=== PATIENT | female | born 1995 | race Caucasian/White ===

== ENCOUNTER 2024-06-13 13:59 | Outpatient (CLI) | payer MEDICAID, SELFPAY ==
--- NOTE | ~2024-06-13 | US_ITS ---
EXAMINATION: US OB <= 14 weeks fetus DATE: 06/13/2024 14:38 INDICATION: First trimester with inconclusive viability TECHNIQUE: Real-time pelvic ultrasound utilizing transabdominal probe was performed. The reuben stevens radiologist was not present for the study. COMPARISON: None. FINDINGS: The uterus measures 15.6 x 5.9 x 9.2 cm. There is an intrauterine gestational sac with single fetus which is in vertex position. The crown rump length measures 7.6 cm, which correlates with an estimate d gestational age of 13 weeks and 5 days. heart motion is identified measuring 150 beats per mi nute (bpm) by M-mode Doppler. The ovaries are not identified. There is no free fluid in the pelvis. IMPRESSION: 1. Single living fetus with heart of 150 bpm. 2. Gestational age by ultrasound of 13 weeks 5 day(s) +/- 1 week and 2 day(s) with ultrasound estima remberto date of delivery (ESTEFANIA) of 12/14/2024. Reviewed, dictated and finalized at location A. IMPRESSION: 1. Single living fetus with heart of 150 bpm. 2. Gestational age by ultrasound of 13 weeks 5 day(s) +/- 1 week and 2 day(s) with ultrasound estimated date of delivery (ESTEFANIA) of 12/14/2024.
[2024-06-13 15:11] LABS: Basophils Percent Auto 0.3 % (0.2-1.2); Eosinophils Absolute Auto 0.2 K/mm3 (0-0.3); Eosinophils Percent Auto 1.8 % (0-4.4); Hematocrit 33.7 % (37.0-47.0); Hemoglobin 12.1 g/dL (12.0-15.0); Immature Granulocyte Absolute 0.07 K/mm3 (0.00-0.031); Immature Granulocyte Percent A 0.5 % (0-0.5); Lymphocytes Absolute Auto 2.43 K/mm3 (0.9-3.2); Lymphocytes Percent Auto 18.3 % (18.3-44.2); Mean Corpuscular HGB Conc 35.9 g/dl (32-36); Mean Corpuscular Hemoglobin 32.3 pg (26-34); Mean Corpuscular Volume 89.9 fl (80-100); Mean Platelet Volume 10.4 fl (7.4-10.4); Monocytes Absolute Auto 0.7 K/mm3 (0.1-0.6); Monocytes Percent Auto 5.2 % (2.6-8.5); Neutrophils Absolute Auto 9.8 K/mm3 (1.3-6.7); Neutrophils Percent Auto 73.9 % (45.5-73.1); Platelet Count Result 270 k/mm3 (150-375); Red Blood Count 3.75 M/mm3 (4.2-5.4); Red Cell Distribution Width 12.1 % (11.5-14.5); White Blood Count 13.3 K/mm3 (4.5-10.0)
[2024-06-13 16:04] LABS: HIV 1/2 Ab P24 Ag Result Negative (Negative)
[2024-06-13 18:13] LABS: Vitamin D 25 Hydroxy 45.8 ng/mL
[2024-06-13 18:32] LABS: Hepatitis B Surface Antigen Negative (Negative); Rubella IgG Antibody 14.1 IU/ML
[2024-06-13 18:47] LABS: Hepatitis C Virus Antibody Negative (Negative)
[2024-06-14 07:33] LABS: Rapid Plasma Reagin Non-Reactive (NonReactive)
== END 2024-06-13 14:00 | disposition home or self-care (01) ==
PROVIDERS: Visit Provider Advanced Practice Midwife
DX: O36.80X0 Pregnancy with inconclusive fetal viability, not applicable or unspecified (principal); Z3A.13 13 weeks gestation of pregnancy
CPT/HCPCS: 36415; 76801; 82306; 82728; 83036; 85025; 86592; 86703; 86762; 86803; 86900; 86901; 87340; G0432

== ENCOUNTER 2024-07-30 09:44 | Outpatient (CLI) | payer OTHER, SELFPAY ==
--- NOTE | ~2024-07-30 | US_ITS ---
COMPLETE AND LIMITED MATERNAL ULTRASOUND (Doppler ultrasound interrogation techniques used as n eeded for this exam.) Ordering provider: Brenda Higuera CNM History: . ANATOMY SCREEN . Comparison: None. Findings: : Single intrauterine fetus with heart rate measured at 151 bpm which is within normal limits. Presentation: Vertex Lie : Longitudinal --SCREENING OF ANATOMY: Heart (4 chambers): Seen and unremarkable. Brain survey: Unremarkable. The cerebellum measures 1.7 cm. Cisterna magna measures 0.3 cm. Lateral ventricle measures 0.5 cm. Abdomen: Unremarkable. Stomach is normal. Cord insertion: Unremarkable. 3 vessel cord: Present and unremarkable. Bladder: Unremarkable. Kidneys: Unremarkable. Spine: Unremarkable. -- BIOMETRICS: BPD: 47.1 mm = 20 weeks and 2 days HC: 175.7 mm = 20 weeks and 1 day FL: 32.1 mm = 20 weeks. AC: 142.5 mm = 19 weeks and 4 days s HC/AC: 1.24 FL/BPD: 67.82 FL/AC: 22.56 Mean US age is 20 weeks and 0 days for an ESTEFANIA on December 17, 2024. Extrapolated weight is 316.48 g EFW/GP 36.5% LOS: 19.1 cm. 5th percentile is 9.3 cm. 95th percentile areas 21.2 cm. The largest pocket measures 7. 3 cm. Placenta: Posterior with No evidence for significant placental anomalies including placenta previa. P lacenta is about 7.5 cm from the cervix. The cervical length is 3.9 cm which is within normal limits. MATERNAL: unremarkable limited maternal ultrasound. IMPRESSION: UNREMARKABLE COMPLETE AND LIMITED MATERNAL US. Reviewed, dictated and finalized at location A.
== END 2024-07-30 09:45 | disposition home or self-care (01) ==
PROVIDERS: Visit Provider Advanced Practice Midwife
DX: Z36.9 Encounter for antenatal screening, unspecified (principal)
CPT/HCPCS: 76805

== ENCOUNTER 2024-10-22 13:03 | Observation (INO) | payer OTHER, SELFPAY ==
[2024-10-22 13:03] VITALS: BMI 28.5
--- NOTE | 2024-10-22 13:03 | OBADM ---
This patient, Jojo Crowe, admitted to the OB room OB Post 116 for observation. Patient/family oriented to hospital policies and general routines including ID bracelet, bed and alarms, visiting hours, pain management, procedures, bathroom and other care routines, personal items, smoking policy, room service/diet, and visiting hours. Patient/Family are encouraged to report perceived risks to care and to ask questions if they do not understand what they are told or what they should do.
[2024-10-22 13:47] VITALS: TEMP 36.5
[2024-10-22 13:53] VITALS: TEMP 36.5
[2024-10-22 14:07] VITALS: BP 101/66; PULSE 96
[2024-10-22] MEDS: DEXTROSE 5%/LACTATED RINGERS 1,000 ML 999 ML IV CONT (14:07)
[2024-10-22] MEDS: ONDANSETRON INJ 4 MG/2 ML VIAL IV PUSH (14:07)
[2024-10-22 14:11] LABS: Add Urine Microscopic? YES; Appearance Urine Cloudy (Clear); Bacteria Urine 3+ /hpf; Bilirubin Urine Negative (Negative); Blood Urine Negative (Negative); Color Urine Dark Yellow (Yellow); Glucose Urine UA Negative (Negative); Ketones Urine 4+ mg/dL (Negative); Leukocyte Esterase Ur Negative LEU/UL (Negative); Need Manual Microscopic Reviewed; Nitrate Urine Negative (Negative); Non Pathogenic Casts 0-2; Protein Urine 1+ mg/dL (Negative); RBC Urine 0-2 /hpf (0-2); Squamous Epithelial Cell Urine Moderate /hpf (Few); pH Urine 5.5 (5.0-9.0)
[2024-10-22 16:20] VITALS: TEMP 36.6
[2024-10-22] MEDS: DEXTROSE 5%/LACTATED RINGERS 1,000 ML 500 ML IV CONT (16:46)
[2024-10-22] MEDS: PROMETHAZINE HCL 25 MG/ML AMPUL 12.5 MG IV PUSH (16:48)
--- NOTE | 2024-11-18 11:27 | P.PNOB_ITS ---
OB - Triage/Final Diagnosis Visit Information Comments/Additional reasons for admission: I have assessed the risk for this patient, Jojo Crowe, and determined that she would benefit from observation care. Evaluation Laboratory results: Laboratory Tests 10/22/24 13:33 Urine Color Dark yellow Urine Appearance Cloudy H Urine pH 5.5 Ur Specific [place] 1.030 Urine Protein 1+ H Urine Glucose (UA) Negative Urine Ketones 4+ H Ur Blood (Man) Negative Urine Nitrate Negative Urine Bilirubin Negative Urine Urobilinogen 1.0 Ur Leukocyte Esterase Negative Add Ur Microanalysis Reviewed Urine RBC 0-2 Urine WBC 11-20 H Ur Squamous Epith Cells Moderate Urine Bacteria 3+ H Urine Casts 0-2 Final Diagnosis (1) Nausea and vomiting during : Code(s): O21.9 - Vomiting of , unspecified Status: Acute
== END 2024-10-22 18:58 | disposition home or self-care (01) ==
PROVIDERS: Admitting Provider Obstetrics & Gynecology; Visit Provider Obstetrics & Gynecology
DX: O21.9 Vomiting of pregnancy, unspecified (principal); Z3A.00 Weeks of gestation of pregnancy not specified
CPT/HCPCS: 81001; 87086; 96374; 96375; G0378; G0379; J2405; J2550; J7121

== ENCOUNTER 2024-12-13 07:16 | Inpatient (IN) | payer OTHER, SELFPAY ==
[2024-12-13] VITALS (217 sets, daily range): BP systolic 91–135; BP diastolic 35–92; PULSE 55–118; TEMP 36.5–37.7; O2SAT 85–100; BMI 29.8
--- NOTE | 2024-12-13 07:46 | WPDOBADMIT ---
Obstetrics - Admit Note Admission Note: record reviewed. No pertinent additions to the history and/or any subsequent changes in the physical findings that are not consistent with the expected course of the were found. Additions to the history and/or subsequent changes in the physical findings follow. Here for MIL. Cervix 1-2/50/-2 anterior-AROM with clear fluid. Will start pitocin.
[2024-12-13 08:03] LABS: Basophils Percent Auto 0.3 % (0.2-1.2); Eosinophils Absolute Auto 0.1 K/mm3 (0-0.3); Eosinophils Percent Auto 0.9 % (0-4.4); Hematocrit 37.4 % (37.0-47.0); Hemoglobin 13.2 g/dL (12.0-15.0); Immature Granulocyte Absolute 0.11 K/mm3 (0.00-0.031); Lymphocytes Absolute Auto 2.41 K/mm3 (0.9-3.2); Lymphocytes Percent Auto 22.1 % (18.3-44.2); Mean Corpuscular HGB Conc 35.3 g/dl (32-36); Mean Corpuscular Hemoglobin 32.1 pg (26-34); Mean Platelet Volume 11.8 fl (7.4-10.4); Monocytes Absolute Auto 0.8 K/mm3 (0.1-0.6); Monocytes Percent Auto 7.3 % (2.6-8.5); Neutrophils Absolute Auto 7.5 K/mm3 (1.3-6.7); Neutrophils Percent Auto 68.4 % (45.5-73.1); Platelet Count Result 190 k/mm3 (150-375); Red Blood Count 4.11 M/mm3 (4.2-5.4); Red Cell Distribution Width 12.8 % (11.5-14.5); White Blood Count 10.9 K/mm3 (4.5-10.0)
[2024-12-13 08:36] LABS: Rapid Plasma Reagin Non-Reactive (NonReactive)
[2024-12-13] MEDS: OXYTOCIN 30 UNITS/NS 500 ML 30 UNITS/500 ML BAG 6 UNITS IV CONT (08:37)
[2024-12-13] MEDS: LACTATED RINGERS 1,000 ML 125 ML IV CONT ×3 (08:38→18:44)
[2024-12-13 08:56] LABS: HIV 1/2 Ab P24 Ag Result Negative (Negative)
[2024-12-14] VITALS (187 sets, daily range): BP systolic 86–143; BP diastolic 39–99; PULSE 45–184; RESP 16; TEMP 36.6–39.3; O2SAT 90–100
[2024-12-14] MEDS: fentaNYL CITRATE INJ (*CRX) 100 MCG/2 ML VIAL 50 MCG IV PUSH (00:20)
[2024-12-14] MEDS: ACETAMINOPHEN 500 MG TABLET 1000 MG PO (01:00)
[2024-12-14] MEDS: AMPICILLIN 2 GM/NS 100 ML 2 GM/100 ML BAG IVPB (02:22)
[2024-12-14] MEDS: LACTATED RINGERS 1,000 ML 125 ML IV CONT ×2 (02:24→12:28)
[2024-12-14] MEDS: diphenhydrAMINE HCl INJ 50 MG/ML VIAL 25 MG IV PUSH ×2 (02:56→12:27)
[2024-12-14] MEDS: GENTAMICIN SULFATE INJ 335 MG in DEXTROSE 5% 100 ML 108.38 MG IVPB (03:41)
[2024-12-14] MEDS: ACETAMINOPHEN 500 MG TABLET 1000 MG (07:49)
[2024-12-14] MEDS: AMPICILLIN 1 GM/NS 50 ML 1 GM/50 ML BAG IVPB ×3 (07:49→20:00)
--- NOTE | 2024-12-14 13:33 | PM.OBPRVD ---
OB - Vaginal Delivery Note Procedure Delivery date: 12/14/24 Intrapartal Events: Chorioamnionitis Induction method: AROM and Per Pitocin Protocol Delivery monitor: External FHT and External Uterine Route of delivery: Episiotomy description: None Laceration Description: Perineal - 1st Degree Delivery repair: vicryl (3-0) Specimen: Yes (placenta) Quantitative Blood Loss (ml): 150 Anesthesia type: Epidural Disposition: Floor Complications: No immediate complications Kerrick Baby Date of : 12/14/24 gender: Female Weight (pounds): 7 Weight (ounces): 2 presentation: vertex position: Right Occiput Anterior Placenta delivery description: Spontaneous Cord Vessel Description: 3 Vessels and Delayed Cord Clamping score one minute: 8 score five minutes: 9
--- NOTE | 2024-12-14 13:35 | P.DS_ITS ---
DS: Admitting Diagnosis Discharge Date 12/17/24 Admitting Diagnosis IUP 39 wks MIL DS: Discharge Diagnosis Discharge Diagnosis (1) (normal spontaneous vaginal delivery): Code(s): O80 - Encounter for full-term uncomplicated delivery Status: Acute OB - DS: Summary Hospital Course Hospital Course: Right lower leg tingling with normal strength and walking. Anesthesia to evaluate. OB Procedures : Ultrasound OB Procedures Intrapartum: Spontaneous Vag Delivery OB Procedures: : None Peripartum Data Infant Delivery Method: Natural Vaginal Laceration Description: Perineal - 1st Degree Episiotomy description: None complications: none Status at Discharge Functional status at discharge: independent ambulation Overall status at discharge: patient is progressing back to baseline Time Spent with Patient Time attestation: Total time spent providing and/or coordinating discharge services: Discharge Plan Discharge Attending physician on discharge: Melody Nunez Discharging Clinician: Melody Nunez Anticipated Discharge Date/Time: 12/16/24 13:36 Patient Disposition: Home, Self-Care Activity: may shower and pelvic rest Diet: regular Discharge Instructions: Education: Mom and Baby Guide Given to: Mother Follow-Up: Call your delivering provider's office for an appointment to be seen in: 6 Weeks Mom and baby should come to the [facility] for the follow-up appointment. Appointment Date/Time: December 19, 2024 at 8:00 am What to expect at your follow-up visit: Blood Pressure Check Physical Assessment Call [phone] if you are unable to keep your appointment time. BREAST CARE: * Wear a snug supportive bra. * For engorgement discomfort: Breast Feeding: * Apply warm moist washcloths * Express milk as needed to relieve engorgement * Wear loose clothing Bottle Feeding: * May apply ice packs * For sore nipples: * Identify correct latch-on * Apply warm moist washcloths before and after nursing * Air dry nipples after nursing * May apply Lansinoh cream to nipples EPISIOTOMY/PERINEAL CARE: * Until bleeding stops, use your tessa bottle after urinating * Change your pad frequently throughout the day * You may take sitz baths several times a day (fill your bathtub with warm water and soak for 20 minutes.) Do NOT bathe in the water * No tub baths until seen by your physician - You may shower ACTIVITY: * Rest as much as possible. * Do not exercise or lift anything heavier than your baby (such as laundry or other children.) * Avoid stairs or driving as much as possible. * Do not put anything into the vagina. No douching, tampons, or sexual activity until seen by physician. NOTIFY PHYSICIAN IF YOU HAVE ANY QUESTIONS OR IF ANY OF THE FOLLOWING SYMPTOMS OCCUR: * If your episiotomy or incision becomes red, swollen, or more painful than what you have experienced in the hospital. * If your vaginal bleeding becomes foul smelling. * If your vaginal bleeding becomes more heavy than a period or if your bleeding changes from pink to bright red. However, you may pass an occasional walnut- sized clot once or twice for the first week . * If you experience a sharp, shooting pain in you calves. * If you discover a hard, reddened area on your breast or if you experience flu- like symptoms. DIET: * Eat regular, well-balanced meals. * Drink plenty of fluids daily. If , drink to thirst. Patient Instructions: Antibiotic Form Patient Language: German Stand Alone Forms: General Discharge Information Follow-up/Referrals: Melody Nunez MD [Physician] - 6 Weeks Discharge Medications: Continued PNV [id number] fumarate-FA [] 28 mg iron- 800 mcg tablet 1 tablet PO DAILY Discontinued pyridoxine (vitamin B6) 100 mg/2.5 mL liquid PO Unisom (doxylamine) 25 mg tablet 12.5 mg PO ONCE Date of admission: 12/13/24 07:16 Primary Care Provider: PHYSICIAN,[employer] ROOM OPERATOR Admitting Provider: Melody Nunez Attending physician on admission: Melody Nunez Condition: Stable
[2024-12-14] MEDS: OXYTOCIN 30 UNITS/NS 500 ML 30 UNITS/500 ML BAG 999 UNITS IV CONT (13:40)
[2024-12-14] MEDS: IBUPROFEN 600 MG TABLET PO ×2 (14:20→20:20)
[2024-12-14] MEDS: BENZOCAINE 20% AER SPR (*SP) 56 GM CAN 1 SPRAY TOPICAL (14:25)
[2024-12-14] MEDS: WITCH HAZEL 40 PADS 1 PAD TOPICAL (14:25)
[2024-12-14] MEDS: ACETAMINOPHEN 325 MG TABLET 650 MG PO ×2 (14:55→23:43)
[2024-12-14 15:16] LABS: Gentamicin Random 3.7 ug/mL (5.0-12.0)
--- NOTE | 2024-12-14 16:00 | OBPPTRN ---
Patient transferred to post room #285 via wheelchair. Support person present. Oriented to unit, room, information board, rooming in, admission packet and security measures. Patient verbalizes understanding.
--- NOTE | 2024-12-14 17:10 | PC.NURSE ---
Introductions were made, then consulted with patient to assess needs related to . Mother led the conversation with her?plans to feed?her and the?experience so far. Encouraged understanding of the benefits of skin to skin (demonstrating unwrapping infant and placing upright on her chest), stimulating with massage touch, changing positions to encourage wakefulness, how to watch for early feeding cues, responsive feeding, feeding on demand (aiming for 8-12 times in 24 hours, about every 2-3 hours), milk production, building/maintaining a milk supply, duration of feeding, signs of adequate intake/output and how to record on the feeding sheet. Mother works well with her infant with encouragement and education. Reviewed positioning and ear, shoulder, hip alignment, supporting the breast to facilitate a deep latch, asymmetrical latch (off-center), leading with the chin with a big, open, wide gape and body close to mother. Infant latched optimally to the [right] breast in [football] position. Education given to the mother of how to visualize the suckling (with good rocking jaw motion), swallows (dropping of the lower jaw) and how to listen for drinking at the breast (the ka sound). was [able] to maintain latch without pain to mother protecting the nipple with optimal positioning and latching. Reviewed comfort measures of healing with a warm, wet washcloth to rinse breast, then leave open to air-dry, good handwashing when or touching the breast/nipples to prevent infection. Mother voiced understanding of skin to skin, stimulating with massage touch, responsive feedings, hand expressed colostrum, talking to to encourage if it has been 2 -2.5 hours since the start of the last , to call if infant does not latch, or if there is discomfort with . Resources used for education were facilitated with the [visual educational handouts/ tool/mom and baby guide], Inpatient/outpatient resources provided with business card, feeding sheet, name written on the communication board, and the mom/baby guide. Parents voiced understanding of information, demonstrated learning and will call if there is a request for assistance. Reported to the Primary RN.
[2024-12-15] MEDS: IBUPROFEN 600 MG TABLET PO ×3 (01:57→17:11)
[2024-12-15] MEDS: AMPICILLIN 1 GM/NS 50 ML 1 GM/50 ML BAG IVPB ×2 (02:03→08:35)
[2024-12-15 04:15] VITALS: BP 110/76; PULSE 67; RESP 20; TEMP 37; O2SAT 97
[2024-12-15] MEDS: ACETAMINOPHEN 325 MG TABLET 650 MG PO ×2 (05:38→21:30)
[2024-12-15 06:11] LABS: Hematocrit 32.8 % (37.0-47.0); Hemoglobin 11.5 g/dL (12.0-15.0)
[2024-12-15 08:20] VITALS: BP 117/61; PULSE 62; RESP 16; TEMP 36.4; O2SAT 96
[2024-12-15] MEDS: DOCUSATE SODIUM 100 MG CAPSULE PO ×2 (08:35→17:11)
[2024-12-15] MEDS: MULTIVIT/MIN/PREN/FOL AC/IRON TABLET 1 TAB PO (08:35)
--- NOTE | 2024-12-15 09:24 | P.PNOB_ITS ---
OB - PN: Subj Subjective Date/time seen: 12/15/24 09:24 Patient comments: no complaints and pain well controlled baby status: doing well OB - PN: Obj Data Labs 12/15/24 04:05 Labs: Laboratory Results - last 24 hr 12/14/24 12/15/24 14:40 04:05 Hgb 11.5 L Hct 32.8 L Random Gentamicin 3.7 L OB - PN A/P Assessment and Plan (1) Chorioamnionitis: Code(s): O41.1290 - Chorioamnionitis, unspecified trimester, not applicable or unspecified Status: Acute Assessment and Plan: Afebrile will discontinue antibiotics Plan day: 1 Plan: routine care Time Spent With Patient Time: Total time spent is greater than 50% in coordination of care (as documented) at patient's floor/unit and/or counseling patient: Exam 2 : Bimanual exam- vagina & uterus: other (Uterus firm, nt @U)
--- NOTE | 2024-12-15 11:12 | WPDANLDPN2 ---
Anes-Prog Note L&D Date/Time: 12/15/24 11:12 Comfortable throughout: labor and delivery Neuraxial method: epidural Epidural/Spinal procedure site: clean & non-tender Neuro status: Neuro function grossly intact. Cardiovascular status: normal Respiratory status: normal Airway patency: baseline Mental status: baseline Post-Op hydration status: normal Vital Signs: Last Vital Signs Temp 36.4 C 12/15/24 08:20 Pulse 62 12/15/24 08:20 Resp 16 12/15/24 08:20 BP 117/61 12/15/24 08:20 Pulse Ox 96 12/15/24 08:20 O2 Del Method Room Air 12/13/24 08:04 Pain score (VAS): 2 I/O: Intake & Output 12/14/24 12/15/24 12/15/24 23:59 07:59 15:59 Intake Total 50 50 300 Balance 50 50 300 Post-procedural complaints: none Patient feedback: Patient satisfied with anesthetic care.
[2024-12-15 12:15] VITALS: BP 116/68; PULSE 61; RESP 18; TEMP 36.6; O2SAT 97
[2024-12-15 19:57] VITALS: BP 117/80; PULSE 66; RESP 18; TEMP 36.7; O2SAT 98
--- NOTE | 2024-12-15 21:30 | PC.NURSE ---
RN called anesthesia to notify that patient was experiencing numbness and tingling her right foot on ambulation. Anesthesia reported they will consult 12/16. No pain up the leg or in patient's calf noted. Mild weakness noted on flexion of the right foot when patient is lying down.
[2024-12-16] MEDS: ACETAMINOPHEN 325 MG TABLET 650 MG PO ×2 (03:42→09:44)
[2024-12-16] MEDS: IBUPROFEN 600 MG TABLET PO (03:42)
[2024-12-16 08:15] VITALS: BP 112/71; PULSE 67; RESP 16; TEMP 36.3; O2SAT 97
--- NOTE | 2024-12-16 09:00 | PC.NURSE ---
Mother called out for syringes to feed baby expressed colostrum. RN syringe fed 1.5ml of colostrum. Mom states that it has been a challenge to get baby to breastfeed and that she has a blister on one nipple. The night RN worked with her on latch and positioning and mom says the blister is healing and she is feeling more comfortable with feedings this morning. She does reiterate that baby will do better at breast when her milk is in. Encouraged her to call for assistance today with latching and positioning. Baby has lost 7.9% weight. Mom does not want to supplement with formula so she is pumping after each and supplementing with whatever pumped milk she gets. Reported syringe feeding to primary RN.
--- NOTE | 2024-12-16 09:00 | PC.NURSE ---
Pt complains of right leg numbness and tingling. States she told the nurse last night and it is a little better than last night but still slightly numb and tingling. She is able to walk without difficulty. Anesthesia to see patient when they make rounds today.
[2024-12-16] MEDS: WITCH HAZEL 40 PADS 1 PAD TOPICAL (09:45)
[2024-12-16] MEDS: MULTIVIT/MIN/PREN/FOL AC/IRON TABLET 1 TAB PO (09:45)
[2024-12-16] MEDS: BENZOCAINE 20% AER SPR (*SP) 56 GM CAN 1 SPRAY TOPICAL (09:45)
--- NOTE | 2024-12-16 10:12 | P.PNOB_ITS ---
OB - PN: Subj Subjective Date/time seen: 12/16/24 10:12 Interval history: Right leg tingling more with walking Patient comments: pain well controlled baby status: doing well OB - PN: Obj Data Labs 12/15/24 04:05 OB - PN A/P Plan day: 2 Plan: routine care, discharge home and other (Anesthesia to evaluate tingling in right leg) Time Spent With Patient Time: Total time spent is greater than 50% in coordination of care (as documented) at patient's floor/unit and/or counseling patient: Exam 2 : Bimanual exam- vagina & uterus: other (Uterus firm, nt @U) Extrem: Right lower extremity: normal to inspection, full ROM and edema (Trace edema) Other: Normal strength in right leg
--- NOTE | 2024-12-16 10:30 | PC.NURSE ---
1030: Consulted with mother concerning needs and she shared her ability to independently latch infant. They have some feeding where the latch is more difficult than others, especially on the left breast. Encouraged parents to call for a latch check before dsicharge. Mother is feeding appropriately for growth of infant and understands stimulating to eat if needed. has had appropriate feedings in the last 24 hours meets the outcomes for weight, output, blood sugar and jaundice at this time. Reinforced understanding of milk production, transition of milk, signs of adequate intake, transition of stool, prevention/relief of engorgement, plugged ducts, mastitis, responsive watching for feeding cues, the different methods of stimulating infant to breastfeed 1-3 hours after the start of the last feeding, community resources, and when to call a provider using the resource of the feeding sheet along with the mom and baby guide. Mother voiced understanding of the information shared, is confident to continue effectively her infant at home, when to call for assistance, denies any additional assistance or education at this time. Reported to the Primary RN. 1120: Parents called for feeding assistance. Mom likes the cradle hold. The football hold feels awkward for her. Baby is easy to wake and opens very wide. Baby struggles to close her mouth around the breast, so mom was shown how to use the breast 'bite' to assist with a deeper latch. Also suggested skin to skin to help baby regulate when struggling or letting baby suck on a finger and then quickly switching to the breast. We reviewed signs of a deep latch, nutritive vs nonnutritive suckling, let down, engorgement, and shallow latch risks including less milk transfer and nipple trauma. Parents were engaged and listened well, asking appropriate questions. Infant seems to be learning well and mom was encouraged to continue working on to reap the benefits for mom and baby. Mom felt reassured and states that she is feeling better about going home after this education. She has the outpatient resources and a [facility] referral was faxed to the [place] office. Reported to primary RN.
--- NOTE | 2024-12-16 13:55 | PC.NURSE ---
Anesthesia here to see patient, no new orders received. Will discharge patient to home
--- NOTE | 2024-12-16 14:00 | WPDANLDPN2 ---
Anes-Prog Note L&D Date/Time: 12/16/24 14:00 Comfortable throughout: labor and delivery Neuraxial method: epidural Epidural/Spinal procedure site: clean & non-tender Neuro status: Neuro function grossly intact. Cardiovascular status: normal Respiratory status: normal Airway patency: baseline Mental status: baseline Post-Op hydration status: normal Vital Signs: Last Vital Signs Temp 36.3 C L 12/16/24 08:15 Pulse 67 12/16/24 08:15 Resp 16 12/16/24 08:15 BP 112/71 12/16/24 08:15 Pulse Ox 97 12/16/24 08:15 O2 Del Method Room Air 12/13/24 08:04 Pain score (VAS): 3 Post-procedural complaints: none (right foot numbness and tingling noted by patient, beginning today. no sensory issues reported by patient yesterday. upon evaluation patient has full motor movement of right foot/toes. Bilateral feet noted to be swollen. Advised pat to let anesthesia know if symptoms worsen/motor function lessens) Patient feedback: Patient satisfied with anesthetic care.
[2024-12-19 08:32] VITALS: BP 125/88; PULSE 69; RESP 18; TEMP 37.1; O2SAT 98
== END 2024-12-16 16:19 | disposition home or self-care (01) | DRG 560 ==
LOC: ANHLDR 12-14 13:36 → ANHOB2 12-14 16:04
PROVIDERS: Admitting Provider Obstetrics & Gynecology Gynecology; Visit Provider Obstetrics & Gynecology Gynecology
DX: O41.1230 Chorioamnionitis, third trimester, not applicable or unspecified (principal); Z37.0 Single live birth; Z3A.39 39 weeks gestation of pregnancy; O70.0 First degree perineal laceration during delivery; O63.0 Prolonged first stage (of labor)
CPT/HCPCS: 36415; 80170; 85014; 85018; 85025; 86592; 86703; 86850; 86900; 86901; 88307; A9270; G0432; J0290; J1200; J1580; J2590; J2795; J3010; J7120

== ENCOUNTER 2025-03-18 16:32 | Outpatient (CLI) | payer OTHER, SELFPAY ==
--- NOTE | ~2025-03-18 | US_ITS ---
EXAMINATION: US pelvic complete INDICATION: Irregular menses Comparison:No prior studies for comparison. TECHNIQUE: Multiple transabdominal sonographic images of the pelvis performed. FINDINGS: The uterus measures 9.6 x 3.4 x 5 cm. The endometrial complex measures 9 mm. The right ovary measures 4.3 x 1.6 x 2.1 cm and the left ovary measures 3.3 x 1.5 x 2.3 cm. There ar e small follicles in each ovary, largest in the right ovary measuring 1.7 cm.. Normal doppler signal in both ovaries. There is no free fluid in the pelvis. There are no abnormal masses seen on either side. IMPRESSION: 1. Right ovarian cyst measuring 1.7 cm. Reviewed, dictated and finalized at location []
== END 2025-03-18 16:33 | disposition home or self-care (01) ==
PROVIDERS: PCP Obstetrics & Gynecology Gynecology; Visit Provider Obstetrics & Gynecology Gynecology
DX: N92.6 Irregular menstruation, unspecified (principal); N83.201 Unspecified ovarian cyst, right side
CPT/HCPCS: 76856